=== PATIENT | female | born 1980 | race Two or more races ===

== ENCOUNTER 2024-07-14 16:47 | Emergency (ER) | payer SELFPAY ==
[~2024-07-14] VITALS: Ht 154.9 cm; Wt 70.3 kg
[2024-07-14 17:15] VITALS: TEMP 98.9
[2024-07-14] MEDS: acetaZOLAMIDE 250 MG TABLET PO ONE (18:14)
[2024-07-14 18:20] VITALS: BP 115/70; O2SAT 99
== END 2024-07-14 18:16 | disposition home or self-care (01) ==
LOC: ER 16:47
DX: H40.9 Unspecified glaucoma (principal); Z88.0 Allergy status to penicillin